=== PATIENT | male | born 1940 | race Caucasian/White ===

== ENCOUNTER 2023-09-09 12:52 | Outpatient (REF) | payer MEDICARE, OTHER, SELFPAY ==
--- NOTE | 2023-09-09 12:56 | EEG_ITS ---
FINDINGS: The waking background activity consists of a low to moderate voltage posteriorly 9 to 9.5 hertz alpha frequency that is seen symmetrically and attenuates well with eye opening while low voltage fast frequencies predominate anteriorly. Photic stimulation is without activation. Hyperventilation is omitted. No focal, lateralizing, or paroxysmal discharges are seen. IMPRESSION: This waking EEG is within normal limits. MD TRI Hurst/[facility] / [id number]
== END 2023-09-09 12:53 | disposition home or self-care (01) ==
LOC: HO.NEURO 12:52
PROVIDERS: PCP Internal Medicine; Visit Provider Psychiatry & Neurology Neurology
DX: G40.209 Localization-related (focal) (partial) symptomatic epilepsy and epileptic syndromes with complex partial seizures, not intractable, without status epilepticus (principal)
CPT/HCPCS: 95816